=== PATIENT | female | born 1980 | race Caucasian/White ===

== ENCOUNTER 2024-08-19 05:42 | Outpatient (REF) | payer MEDICAID, SELFPAY ==
--- NOTE | 2024-08-19 | EMG_ITS ---
Right tibial and peroneal motor studies were performed. Right superficial peroneal, sural, and median and lateral plantar sensory studies were performed. Tibial H-reflex was obtained and paraspinal muscles were tested with a needle. IMPRESSION: 1. Mild sensory motor axonal peripheral neuropathy. 2. Chronic right lower lumbar radiculopathy. MD JOANNE Diaz/KARLOS / [id number]
== END 2024-08-19 05:43 | disposition home or self-care (01) ==
LOC: HO.NEURO 05:42
PROVIDERS: PCP Internal Medicine; Visit Provider Internal Medicine
DX: M79.671 Pain in right foot (principal)
CPT/HCPCS: 95886; 95910